=== PATIENT | male | born 1990 | race Two or more races ===

== ENCOUNTER 2023-10-08 11:10 | Emergency (ER) | payer OTHER, SELFPAY ==
--- NOTE | 2023-10-08 11:38 | ED_ITS ---
HPI - General Adult General Chief complaint: Upper Respiratory Symptoms Stated complaint: sore throat, body aches Time Seen by Provider: 10/08/23 13:26 Source: patient Mode of arrival: ambulatory Limitations: no limitations History of Present Illness HPI narrative: patient is a 32-year-old male who presents emergency department for evaluation of sore throat, nonproductive cough, body aches, tactile fever for the past 3 days. He has been taking Tylenol and ibuprofen with some improvement in symptoms. He denies any known sick contacts. Denies chest pain, shortness of breath, difficulty breathing. Denies difficulty swallowing. Denies neck pain or neck stiffness, no headache. Related Data Previous Rx's Medication Instructions Recorded amoxicillin 875 mg-potassium 1 tab PO BID #14 tabs 10/08/23 clavulanate 125 mg tablet Allergies Allergy/AdvReac Type Severity Reaction Status Date / Time diphenhydramine Allergy Hives Verified 10/08/23 13:38 [From Benadryl] Seasonal Allergies Allergy Runny Nose Verified 10/08/23 11:44 Review of Systems Review of Systems: Yes all other systems are reviewed and are negative [facility] Past Medical History Attestation statement: The following information was validated with the patient. Source: old records reviewed Social History Social History Advance Directives: No Advance Directives Information Provided: Yes Physical Exam ED Vital Signs: Vital Signs - 24 hr 10/08/23 11:39 Temperature 99 F Pulse Rate 98 Respiratory Rate 18 Blood Pressure 118/80 Pulse Oximetry 100 Oxygen Delivery Method Room Air BMI result Body Mass Index 25.7 Appearance: Alert.?Oriented to person, place and time. No acute distress.?Normal affect. Eyes: Pupils equal, round and reactive to light.? ENT: Pharynx Erythematous without tonsillar hypertrophy or exudates. Uvula is midline. No trismus. No drooling. TM normal bilaterally. Neck: Normal inspection.? Neck supple.?? No cervical lymphadenopathy. CVS: Heart sounds normal. Normal heart rate and rhythm.? Pulses normal.?? Respiratory: No respiratory distress.? Lung sounds clear to auscultation bilaterally?? Abdomen: Soft and non-tender. Normoactive bowel sounds. Skin: Skin warm and dry.? Normal skin color.? Extremities: No lower extremity edema.? Neuro: Moves all extremities spontaneously. Sensation intact bilaterally. Ambulates with normal steady gait. Course Course Course Narrative: RME- 32-year-old male presents for evaluation of sore throat, fevers for the last 3 days. Plan for strep swab and viral swabs Medical Decision Making Medical Decision Making [facility] Narrative: Patient is a 32-year-old male who presents emergency department for evaluation of URI symptoms. At the time my examination he is overall well-appearing, nontoxic, afebrile, without tachycardia. He is managing his secretions, airways patent, no respiratory distress. Physical examination is most consistent with pharyngitis, strep a testing today is positive, will send prescription for Augmentin to patient's pharmacy. he has also tested positive for influenza B, given that symptoms have been greater than 48 hours, would not be candidate for Tamiflu. Examination is not consistent with peritonsillar retropharyngeal abscess. No evidence of [place]'s angina. Reviewed worrisome signs and symptoms that would warrant re-evaluation in the emergency department. Outpatient follow-up with primary care provider as needed. Stable for discharge. Differential Diagnosis Differential Diagnoses: The differential diagnosis associated with the presentation includes ( As noted above) Admission/Observation Consideration of admission/observation: Escalation of care including admission/observation considered ( as noted above) Lab Data [facility] Lab Attestation statement: I reviewed the patient's lab results. ( as noted above) Labs: Lab Results 10/08/23 Range/Units 13:07 Influenza Type A (PCR) NEGATIVE (Negative) Influenza Type B (PCR) POSITIVE A (Negative) RSV RNA Qual (PCR) NEGATIVE (Negative) SARS-CoV-2 RNA (RT-PCR) NEGATIVE (Negative) S. pyogenes GrpA LO Positive A (Negative) External Record Review External record reviewed: Outpatient record Prescription Management I considered prescription management with: Antibiotic Discharge Plan Discharge Clinical Impression: Acute streptococcal pharyngitis, Influenza B Patient Disposition: Home, Self-Care Instructions: Strep Throat (ED), Influenza (ED) Additional Instructions: Be sure to rest, stay well hydrated drinking plenty of fluids, eat small frequent meals. Tylenol/ibuprofen can be used as needed for fever/pain. [id number] cold medications may be helpful as well for symptoms. Saline nasal spray, humidifier may be helpful for nasal congestion. You may return to the emergency department with any new or worsening symptoms or concerns. Follow-up with your primary care provider as needed. Should remain out of school/ work until symptoms have resolved and have been without a fever for 24 hours without the use of Tylenol or ibuprofen. Prescriptions: New amoxicillin-pot clavulanate 875-125 mg tablet 1 tab PO BID Qty: 14 0RF Referrals: Physician,Unknown J [Primary Care Provider] - Print Language: Congolese
[2023-10-08 11:39] VITALS: BP 118/80; PULSE 98; RESP 18; TEMP 37.2; O2SAT 100; BMI 25.7
[2023-10-08 13:33] LABS: IDNOW Serial# 08D9AD1C; Strep A Nucleic Acid Positive (Negative)
[2023-10-08 13:57] LABS: Influenza A PCR NEGATIVE (Negative); Influenza B PCR POSITIVE (Negative); Resp Syncy Virus RNA Qual PCR NEGATIVE (Negative); SARS COV2 PCR INHOUSE NEGATIVE (Negative)
== END 2023-10-08 14:21 | disposition home or self-care (01) ==
PROVIDERS: Physician Assistant; Emergency Provider Emergency Medicine
DX: J10.1 Influenza due to other identified influenza virus with other respiratory manifestations (principal); J02.0 Streptococcal pharyngitis; M79.10 Myalgia, unspecified site; Z20.822 Contact with and (suspected) exposure to COVID-19; Z20.828 Contact with and (suspected) exposure to other viral communicable diseases
CPT/HCPCS: 0241U; 87651; 99283

== ENCOUNTER 2024-02-12 22:37 | Emergency (ER) | payer OTHER, SELFPAY ==
[2024-02-12 22:39] VITALS: BP 128/76; PULSE 68; RESP 16; TEMP 36.7; O2SAT 99; BMI 26.4
--- NOTE | 2024-02-13 01:40 | ED_ITS ---
HPI - General Adult General Chief complaint: General Medical Stated complaint: something stuck in right ear?? Time Seen by Provider: 02/13/24 01:38 Source: patient Mode of arrival: ambulatory Limitations: no limitations History of Present Illness HPI narrative: Patient feel right ear blocked not sure the wax or QTip Related Data Previous Rx's ?Medication ?Instructions ?Recorded amoxicillin 875 mg-potassium 1 tab PO BID #14 tabs 10/08/23 clavulanate 125 mg tablet Allergies Allergy/AdvReac Type Severity Reaction Status Date / Time diphenhydramine Allergy Hives Verified 02/12/24 22:40 [From Benadryl] Seasonal Allergies Allergy Runny Nose Verified 02/12/24 22:40 Review of Systems Review of Systems: Yes all other systems are reviewed and are negative [facility] Social History Social History Advance Directives: No Advance Directives Information Provided: No Physical Exam ED Vital Signs: Vital Signs - 24 hr 02/12/24 22:39 02/13/24 02:29 Temperature 98.0 F 97.4 F Pulse Rate 68 64 Respiratory Rate 16 16 Blood Pressure 128/76 117/78 Pulse Oximetry 99 97 Oxygen Delivery Method Room Air Room Air BMI result Body Mass Index 26.4 Appearance: Alert. Oriented X3. No acute distress. ENT: Pharynx normal. Oral Mucosa moist cerumen impacted in right ear Neck: Normal inspection. Neck supple. CVS: Normal heart rate and rhythm. Pulses normal. Respiratory: No respiratory distress. Equal air entry bilateral, Skin: Skin warm and dry. Normal skin color. Normal skin turgor. Procedures Ear Wax Removal Right Ear: Results: Re-examined: cerumen removed completely TM Examination: TM(s) intact, normal appearance Ear Canal Exam: atraumatic Patient Tolerated Procedure: well Complications: no problems Technique: ear canal irrigated Discharge Plan Discharge Clinical Impression: Impacted cerumen, right ear Patient Disposition: Home, Self-Care Instructions: Carbamide Peroxide (Into the ear) Additional Instructions: Care of your as advised You may use carbamide peroxide for wax buildup Prescriptions: No Action amoxicillin-pot clavulanate 875-125 mg tablet 1 tab PO BID Qty: 14 0RF Print Language: Afghan
[2024-02-13 02:29] VITALS: BP 117/78; PULSE 64; RESP 16; TEMP 36.3; O2SAT 97
[2024-02-13 02:40] VITALS: BP 117/78; PULSE 64; RESP 16; TEMP 36.3; O2SAT 97
== END 2024-02-13 02:48 | disposition home or self-care (01) ==
PROVIDERS: Emergency Provider Internal Medicine
DX: H61.21 Impacted cerumen, right ear (principal)
CPT/HCPCS: 69209; 99283

== ENCOUNTER 2024-05-30 06:24 | Emergency (ER) | payer OTHER, SELFPAY ==
[2024-05-30 06:26] VITALS: BP 120/83; PULSE 75; RESP 16; TEMP 36.6; O2SAT 97; BMI 25.9
[2024-05-30 06:45] VITALS: BP 121/71; PULSE 67; RESP 15; TEMP 36.6; O2SAT 98
--- NOTE | 2024-05-30 07:18 | ED_ITS ---
HPI - Headache General Chief Complaint: Headache Stated Complaint: Headache x 3 days Time Seen by Provider: 05/30/24 06:39 Source: patient Limitations: language barrier History of Present Illness ED Provider: Marci Alvarez PA-C HPI Narrative: 33-year-old otherwise healthy male who presents with headache x3 days. Patient states he has had a generalized headache that is retro-orbital. Patient describes his discomfort as ?pounding sensation?. Associated photophobia and nausea. Denies phonophobia, dizziness or visual changes. Denies recent cough or cold symptoms, fever or neck pain. Patient does not use blood thinners, there has not been any recent head trauma. Related Data Previous Rx's ?Medication ?Instructions ?Recorded amoxicillin 875 mg-potassium 1 tab PO BID #14 tabs 10/08/23 clavulanate 125 mg tablet Allergies Allergy/AdvReac Type Severity Reaction Status Date / Time diphenhydramine Allergy Hives Verified 05/30/24 06:27 [From Benadryl] Seasonal Allergies Allergy Runny Nose Verified 05/30/24 06:27 Review of Systems Review of Systems: Yes all other systems are reviewed and are negative Constitutional: Constitutional: Denies fever(s) and Reports headache(s) Eyes: Eyes: Denies blurry vision ENT: Reports headache(s) and Denies neck pain Gastrointestinal: Gastrointestinal: Reports nausea Musculoskeletal: Musculoskeletal: Denies neck pain Integumentary/Breasts: Skin/Breast: Denies rash Neurologic: Reports headache(s) [facility] Past Medical History Attestation statement: The following information was validated with the patient. Social History Social History Smoked in Last 30 Days: No Use of substances other than those prescribed or required for medical reasons: No Advance Directives: No Physical Exam Vital Signs: Vital Signs: Last Vital Signs Temp 97.8 F 05/30/24 06:45 Pulse 67 05/30/24 06:45 Resp 15 05/30/24 06:45 BP 121/71 05/30/24 06:45 Pulse Ox 98 05/30/24 06:45 O2 Del Method Room Air 05/30/24 06:45 BMI result Body Mass Index 25.9 Const: Other: Alert well in appearance Neck: Other: Full range of motion, no meningeal signs on exam Resp: Other: Nonlabored respirations Cardio: Other: Normal peripheral perfusion Skin: Other: Warm, dry, no rash Neuro: Other: Alert and oriented x3, Romberg negative, cranial nerves intact, no focal neurologic deficits, not ataxic ambulates with normal steady gait Course Course Course Narrative: 33-year-old otherwise healthy male who presents with headache x3 days. Patient states he has had a generalized headache that is retro-orbital. Patient describes his discomfort as ?pounding sensation?. Associated photophobia and nausea. Denies phonophobia, dizziness or visual changes. Denies recent cough or cold symptoms, fever or neck pain. Patient does not use blood thinners, there has not been any recent head trauma. No chronic issues to address History: Per patient via educational sign language interpreter services I have considered the following differential diagnoses: VAD, intracranial hemorrhage, meningitis, migraine Plan: Patient has a headache consistent with a likely migraine. We will be giving you a migraine cocktail which includes Toradol, acetaminophen, Compazine and IV fluid. Thought about VAD, however there was no preceding heavy lifting or other strenuous activity, the patient has no visual changes in his neurologically intact. Thought about intracranial hemorrhage, however again the patient is neurologically intact, there was no preceding head trauma he is not on a blood thinner, and he has no risk factors for vascular disease. Thought about meningitis, however no meningeal signs of exam, he has not had preceding cough or cold symptoms and no fevers. Reevaluation(s) Reevaluation #1: Patient's headache resolved he is eager for discharge Time: 09:12 Medications Administered Discontinued Medications Generic Name Dose Route Start Last Admin Trade Name Wyatt PRN Reason Stop Dose Admin Acetaminophen 975 mg 05/30/24 07:08 05/30/24 07:19 Acetaminophen 325 Mg Tablet PO 05/30/24 07:09 975 mg ONCE ONE Administration Sodium Chloride 1,000 mls @ 999 mls/hr 05/30/24 07:15 05/30/24 08:56 Ns IV 05/30/24 08:15 Infused .Q1H1M ARMEN Infusion Ketorolac Tromethamine 15 mg 05/30/24 07:08 05/30/24 07:19 Ketorolac Tromethamine 15 Mg/Ml Vial IVPUSH 05/30/24 07:09 15 mg ONCE ONE Administration Prochlorperazine Edisylate 10 mg 05/30/24 07:08 05/30/24 07:19 Prochlorperazine Edisylate 10 Mg/2 Ml Vial IVPUSH 05/30/24 07:09 10 mg ONCE ONE Administration Discharge Plan Discharge Clinical Impression: Migraine Patient Disposition: Home, Self-Care Instructions: Migraine Headache (ED) Additional Instructions: You were treated for a migraine type headache, which resolved prior to her discharge. See home care instructions. If your headaches become more frequent, you need to have discussion with your primary care provider in regard to potentially implementing a medication to help prevent headaches. Prescriptions: No Action amoxicillin-pot clavulanate 875-125 mg tablet 1 tab PO BID Qty: 14 0RF Print Language: Belarusian
[2024-05-30] MEDS: Prochlorperazine Edisylate 10 MG/2 ML VIAL IVPUSH (07:19)
[2024-05-30] MEDS: 0.9 % Sodium Chloride 1,000 ML 999 ML IV (07:19)
[2024-05-30] MEDS: Acetaminophen 325 MG TABLET 975 MG PO (07:19)
[2024-05-30] MEDS: Ketorolac Tromethamine 15 MG/ML VIAL IVPUSH (07:19)
--- NOTE | 2024-05-30 09:09 | PC.NURSE ---
Patient reports feeling much better and wants to be discharged, provider aware
[2024-05-30 09:19] VITALS: BP 121/71; PULSE 68; RESP 18; TEMP 36.7; O2SAT 98
== END 2024-05-30 09:20 | disposition home or self-care (01) ==
PROVIDERS: Emergency Provider Emergency Medicine
DX: G43.909 Migraine, unspecified, not intractable, without status migrainosus (principal); H53.143 Visual discomfort, bilateral; R11.0 Nausea
CPT/HCPCS: 96361; 96374; 96375; 99284; 99285; J0737; J1885